=== PATIENT | female | born 1965 | race Caucasian/White ===

== ENCOUNTER 2020-04-03 15:37 | Inpatient (IN) | payer MEDICAID ==
[~2020-04-03] VITALS: Ht 165.1 cm; Wt 73.9 kg
[2020-04-03] MEDS ORDERED: ACETAMINOPHEN 325MG TABLET PO ONE (16:15)
[2020-04-03] MEDS ORDERED: ACETAMINOPHEN 325MG TABLET PO STA (19:01)
[2020-04-03] MEDS ORDERED: DEXAMETHASONE 4MG/ML 1ML VIAL IV ONE (19:15)
[2020-04-03] MEDS ORDERED: CEFTRIAXONE 1 G PREMIX 50 ML IV ONE (19:15)
[2020-04-03] MEDS ORDERED: ACETAMINOPHEN 325MG TABLET PO PRN (22:30)
[2020-04-03] MEDS ORDERED: ONDANSETRON HCL 4MG/2ML INJ IV PRN (22:30)
[2020-04-03] MEDS ORDERED: ALBUTEROL 6.7GM HFA INHALER ORI PRN (22:30)
[2020-04-03] MEDS ORDERED: CLONIDINE 0.1MG TABLET PO PRN (22:30)
[2020-04-03] MEDS ORDERED: CEFTRIAXONE 1 G PREMIX 50 ML IV SCH (22:30)
[2020-04-03] MEDS ORDERED: ENOXAPARIN 40MG/0.4ML SYR SUBCUT ONE (22:30)
[2020-04-03] MEDS ORDERED: AZITHROMYCIN 500 MG TABLET PO SCH (22:30)
[2020-04-03 23:57] LABS: BASOPHILS % 0.4 % (0.0-2.0); EOSINOPHILS % 0.1 % (0.0-5.0); HEMATOCRIT. 35.8 % (36.0-48.0); HEMOGLOBIN. 12.1 g/dL (12.0-16.0); LYMPHOCYTES % 10.8 % (20.0-50.0); MEAN CORPUSCULAR HEMOGLOBIN 28.7 pg (28.0-32.0); MEAN CORPUSCULAR VOLUME 85.1 fL (81.0-99.0); MEAN PLATELET VOLUME 8.7 fl (7.4-10.4); MONOCYTES % 4.5 % (2.0-8.0); NEUTROPHILS % 84.2 % (40.0-76.0); PLATELET 455 x1000/uL (130-400); RED BLOOD CELL COUNT 4.21 mill/uL (4.2-5.4); RED CELL DISTRIBUTION WIDTH 14.4 % (11.6-14.6)
[2020-04-03 23:57] LABS: CLARITY URINE CLOUDY (CLEAR); COLOR URINE YELLOW (YELLOW); KETONES URINE 2+ (NEGATIVE); LEUKOCYTE ESTERASE URINE 1+ (NEGATIVE); NITRITE URINE POSITIVE (NEGATIVE); OCCULT BLOOD URINE NEGATIVE (NEGATIVE); PROTEIN URINE 3+ (NEGATIVE); SPECIFIC GRAVITY URINE 1.024 (1.005-1.030)
[2020-04-04] MEDS ORDERED: MORPHINE SULFATE 2 MG/ML CPJ (NOT FOR IM USE) IV SCH
[2020-04-04 00:06] LABS: CHLORIDE 104 mEq/L (98-107)
[2020-04-04] MEDS: ENOXAPARIN 40MG/0.4ML SYR SUBCUT SCH (06:00)
[2020-04-04] MEDS: AMLODIPINE 10MG TABLET PO SCH (09:00)
[2020-04-04] MEDS: DEXAMETHASONE 4MG TABLET PO SCH (09:00)
[2020-04-04] MEDS: AZITHROMYCIN 250 MG TABLET PO SCH (09:00)
[2020-04-04] MEDS ORDERED: TRAMADOL 50MG TABLET PO PRN (12:00)
[2020-04-04] MEDS ORDERED: HYDROCODONE/ACETAMINOPHEN 5/325MG TABLET PO PRN (12:00)
[2020-04-04] MEDS ORDERED: DEXTROSE 50% WATER 50ML SYRINGE IV PRN (12:00)
[2020-04-04] MEDS: BLOOD SUGAR DIAGNOSTIC STRIP TEST SCH ×3 (13:00→21:00)
[2020-04-04] MEDS ORDERED: INSULIN GLARGINE UD 100 UNITS/ML SYR SUBCUT NR (13:30)
[2020-04-04] MEDS: INSULIN LISPRO 100 UNITS/ML SUBCUT SCH ×2 (15:00→21:00)
[2020-04-04] MEDS: LOSARTAN POTASSIUM 50 MG TABLET PO SCH (18:30)
[2020-04-04] MEDS: CEFTRIAXONE 1,000 MG in DEXTROSE 5% WATER 50 ML IV SCH (23:00)
[2020-04-05] MEDS: AMLODIPINE 10MG TABLET PO SCH (09:00)
[2020-04-05] MEDS: LOSARTAN POTASSIUM 50 MG TABLET PO SCH (09:00)
[2020-04-05] MEDS ORDERED: INSULIN GLARGINE UD 100 UNITS/ML SYR SUBCUT SCH ×2 (10:00→22:00)
[2020-04-05] MEDS: INSULIN LISPRO 100 UNITS/ML SUBCUT SCH ×4 (11:00→21:00)
[2020-04-05] MEDS: DEXAMETHASONE 4MG TABLET PO SCH (11:40)
[2020-04-05] MEDS: ENOXAPARIN 40MG/0.4ML SYR SUBCUT SCH (11:41)
[2020-04-05] MEDS: AZITHROMYCIN 250 MG TABLET PO SCH (11:41)
[2020-04-05] MEDS: BLOOD SUGAR DIAGNOSTIC STRIP TEST SCH ×3 (13:24→21:00)
[2020-04-05] MEDS: INSULIN GLARGINE UD 100 UNITS/ML SYR SUBCUT SCH (22:00)
[2020-04-05] MEDS: CEFTRIAXONE 1,000 MG in DEXTROSE 5% WATER 50 ML IV SCH (23:22)
[2020-04-06 01:00] VITALS: BP 141/74
[2020-04-06] MEDS: BLOOD SUGAR DIAGNOSTIC STRIP TEST SCH ×4 (07:03→21:41)
[2020-04-06] MEDS: INSULIN LISPRO 100 UNITS/ML SUBCUT SCH ×4 (07:24→21:53)
[2020-04-06 08:00] VITALS: BP 149/72
[2020-04-06] MEDS: AZITHROMYCIN 250 MG TABLET PO SCH (09:26)
[2020-04-06] MEDS: AMLODIPINE 10MG TABLET PO SCH (09:26)
[2020-04-06] MEDS: LOSARTAN POTASSIUM 50 MG TABLET PO SCH (09:26)
[2020-04-06] MEDS: ENOXAPARIN 40MG/0.4ML SYR SUBCUT SCH (09:27)
[2020-04-06] MEDS: DEXAMETHASONE 4MG TABLET PO SCH (09:27)
[2020-04-06] MEDS: HYDROCODONE/ACETAMINOPHEN 5/325MG TABLET PO PRN ×2 (10:24→19:22)
[2020-04-06] MEDS: INSULIN GLARGINE UD 100 UNITS/ML SYR SUBCUT SCH ×2 (10:26→22:00)
[2020-04-06 12:00] VITALS: BP 124/54
[2020-04-06 16:00] VITALS: BP 106/52
[2020-04-06 19:30] LABS: BG BASE EXCESS -0.1 mmol/L (-2.0-2.0); BG CARBOXYHEMOGLOBIN 0.2 % (0.5-1.5); BG DEOXYHEMOGLOBIN 2.2 % (0.0-5.0); BG FRACTION INSPIRED OXYGEN 54; BG HCO3 ACT 22.5 mmol/L (22.0-26.0); BG METHEMOGLOBIN 0.1 % (0.0-1.5); BG OXYGEN SATURATION 97.8 % (92.0-98.5); BG OXYHEMOGLOBIN 97.5 % (94.0-97.0); BG PCO2 30.2 mmHg (35.0-45.0); BG PO2 103.3 mmHg (75.0-100.0); BG SAMPLE SITE RIGHT RADIAL; BG VENT MODE NASAL CANNULA
[2020-04-06 20:00] VITALS: BP 122/51
[2020-04-06] MEDS: CEFTRIAXONE 1,000 MG in DEXTROSE 5% WATER 50 ML IV SCH (22:14)
[2020-04-07 00:35] VITALS: BP 134/58
[2020-04-07] MEDS: BLOOD SUGAR DIAGNOSTIC STRIP TEST SCH ×4 (07:22→21:00)
[2020-04-07] MEDS: INSULIN LISPRO 100 UNITS/ML SUBCUT SCH ×4 (07:46→21:00)
[2020-04-07 08:25] VITALS: BP 140/54
[2020-04-07] MEDS: LOSARTAN POTASSIUM 50 MG TABLET PO SCH (09:48)
[2020-04-07] MEDS: DEXAMETHASONE 4MG TABLET PO SCH (09:54)
[2020-04-07] MEDS: AMLODIPINE 10MG TABLET PO SCH (09:55)
[2020-04-07] MEDS: AZITHROMYCIN 250 MG TABLET PO SCH (09:55)
[2020-04-07] MEDS: HYDROCODONE/ACETAMINOPHEN 5/325MG TABLET PO PRN (09:56)
[2020-04-07] MEDS: ENOXAPARIN 40MG/0.4ML SYR SUBCUT SCH (10:06)
[2020-04-07] MEDS: INSULIN GLARGINE UD 100 UNITS/ML SYR SUBCUT SCH ×2 (12:20→23:26)
[2020-04-07] MEDS ORDERED: INSULIN LISPRO 100 UNITS/ML SUBCUT SCH (18:00)
[2020-04-07 20:00] VITALS: BP 112/64
[2020-04-07] MEDS: CEFTRIAXONE 1,000 MG in DEXTROSE 5% WATER 50 ML IV SCH (23:21)
[2020-04-07 23:49] LABS: BASOPHILS % 0.2 % (0.0-2.0); EOSINOPHILS % 0.3 % (0.0-5.0); HEMOGLOBIN. 13.6 g/dL (12.0-16.0); LYMPHOCYTES % 11.8 % (20.0-50.0); MEAN CORPUSCULAR HEMOGLOBIN 28.3 pg (28.0-32.0); MEAN CORPUSCULAR VOLUME 85.5 fL (81.0-99.0); MEAN PLATELET VOLUME 8.8 fl (7.4-10.4); MONOCYTES % 9.2 % (2.0-8.0); NEUTROPHILS % 78.5 % (40.0-76.0); PLATELET 721 x1000/uL (130-400); RED CELL DISTRIBUTION WIDTH 13.9 % (11.6-14.6)
[2020-04-07 23:56] LABS: CHLORIDE 103 mEq/L (98-107)
[2020-04-08] MEDS: HYDROCODONE/ACETAMINOPHEN 5/325MG TABLET PO PRN (01:43)
[2020-04-08] MEDS: BLOOD SUGAR DIAGNOSTIC STRIP TEST SCH ×4 (07:26→21:00)
[2020-04-08] MEDS: INSULIN LISPRO 100 UNITS/ML SUBCUT SCH ×4 (07:50→21:00)
[2020-04-08 08:00] VITALS: BP 138/77
[2020-04-08] MEDS: ENOXAPARIN 40MG/0.4ML SYR SUBCUT SCH (09:52)
[2020-04-08] MEDS: LOSARTAN POTASSIUM 50 MG TABLET PO SCH (09:52)
[2020-04-08] MEDS: AZITHROMYCIN 250 MG TABLET PO SCH (09:52)
[2020-04-08] MEDS: AMLODIPINE 10MG TABLET PO SCH (09:53)
[2020-04-08] MEDS: DEXAMETHASONE 4MG TABLET PO SCH (09:53)
[2020-04-08] MEDS: INSULIN GLARGINE UD 100 UNITS/ML SYR SUBCUT SCH ×2 (10:00→22:00)
[2020-04-08 20:00] VITALS: BP 145/68
[2020-04-08] MEDS: CEFTRIAXONE 1,000 MG in DEXTROSE 5% WATER 50 ML IV SCH (23:00)
[2020-04-09] MEDS: BLOOD SUGAR DIAGNOSTIC STRIP TEST SCH ×3 (07:00→17:20)
[2020-04-09] MEDS: INSULIN LISPRO 100 UNITS/ML SUBCUT SCH ×3 (07:50→18:47)
[2020-04-09 08:00] VITALS: BP 137/61
[2020-04-09] MEDS: AZITHROMYCIN 250 MG TABLET PO SCH (10:05)
[2020-04-09] MEDS: AMLODIPINE 10MG TABLET PO SCH (10:05)
[2020-04-09] MEDS: DEXAMETHASONE 4MG TABLET PO SCH (10:05)
[2020-04-09] MEDS: LOSARTAN POTASSIUM 50 MG TABLET PO SCH (10:05)
[2020-04-09] MEDS: ENOXAPARIN 40MG/0.4ML SYR SUBCUT SCH (10:06)
[2020-04-09] MEDS: INSULIN GLARGINE UD 100 UNITS/ML SYR SUBCUT SCH (11:18)
[2020-04-09 13:00] VITALS: BP 137/65
[2020-04-09 14:50] VITALS: BP 137/65
[2020-04-09 16:00] VITALS: BP 134/62
[2020-04-10] MEDS ORDERED: INSULIN GLARGINE UD 100 UNITS/ML SYR SUBCUT SCH (10:00)
== END 2020-04-09 21:10 | disposition home health service (06) | DRG 720 ==
LOC: ER 15:37 → 7WST 22:20 → ENRESERV 04-05 22:55 → 6WST 04-07 00:01
PROVIDERS: ADMIT Internal Medicine; ATTEND Internal Medicine
DX: A41.9 Sepsis, unspecified organism (principal); U07.1 COVID-19; J96.00 Acute respiratory failure, unspecified whether with hypoxia or hypercapnia; N39.0 Urinary tract infection, site not specified; I10 Essential (primary) hypertension; E43 Unspecified severe protein-calorie malnutrition; E11.9 Type 2 diabetes mellitus without complications; J12.82 Pneumonia due to coronavirus disease 2019; Z68.27 Body mass index [BMI] 27.0-27.9, adult
CPT/HCPCS: 36415; 36600; 71045; 80048; 80076; 81003; 82375; 82805; 82962; 83605; 83880; 84145; 84484; 85025; 87635; 93005; 96365; 96375; 99285; J0696; J1100; J1650; J1815; J2270; J7040; J7060; J8540